=== PATIENT | female | born 2000 | race Caucasian/White ===

== ENCOUNTER 2018-08-12 16:14 | Outpatient (CLI) | payer MEDICAID, OTHER | END 2018-08-12 17:00 | disposition home or self-care (01) | LOC: LDOP 16:14 | PROVIDERS: ATTEND Obstetrics & Gynecology | DX: O36.8190 Decreased fetal movements, unspecified trimester, not applicable or unspecified (principal); Z3A.00 Weeks of gestation of pregnancy not specified | CPT/HCPCS: 59025; 99201; G0463 ==

== ENCOUNTER 2018-12-02 10:04 | Outpatient (CLI) | payer MEDICAID ==
[~2018-12-02] VITALS: Ht 154.9 cm; Wt 49.0 kg
[2018-12-02 10:20] VITALS: BP 108/58
[2018-12-02 11:23] LABS: CULTURE INDICATED? YES; MICROSCOPIC INDICATED
[2018-12-02 13:12] LABS: ACETONE, URINE Large (80mg/dL) (Negative)
== END 2018-12-02 14:10 | disposition home or self-care (01) ==
LOC: LDOP 10:04
PROVIDERS: ATTEND Obstetrics & Gynecology
DX: O26.893 Other specified pregnancy related conditions, third trimester (principal); R10.9 Unspecified abdominal pain; Z3A.37 37 weeks gestation of pregnancy
CPT/HCPCS: 59025; 81001; 82009; 87086; 99211; G0463

== ENCOUNTER 2018-12-08 12:43 | Inpatient (IN) | payer MEDICAID ==
[~2018-12-08] VITALS: Ht 154.9 cm; Wt 49.1 kg
[2018-12-08 13:00] VITALS: BP 102/53
[2018-12-08] MEDS ORDERED: LACTATED RINGERS 1,000 ML IV SCH ×2 (13:08→13:25)
[2018-12-08] MEDS ORDERED: OXYTOCIN 30U/ 0.9% NaCL 500ML 500 ML IV ONE (13:08)
[2018-12-08] MEDS: D5%-LACTATED RINGERS 1,000 ML IV SCH ×2 (13:08→21:08)
[2018-12-08] MEDS ORDERED: OXYTOCIN 30U/ 0.9% NaCL 500ML 500 ML IV PRN (13:25)
[2018-12-08] MEDS ORDERED: FENTANYL/BUPIV./NS/PF 250 ML EPIDCONT SCH (13:25)
[2018-12-08] MEDS ORDERED: ONDANSETRON 2MG/ML, 2ML IVPush PRN (13:30)
[2018-12-08] MEDS ORDERED: FENTANYL PF 100 MCG/2ML IV PRN (13:30)
[2018-12-08] MEDS ORDERED: EPHEDRINE 50 MG/ML, 1ML IVPush PRN (13:30)
[2018-12-08] MEDS ORDERED: FENTANYL PF 100 MCG/2ML IVPush PRN (13:30)
[2018-12-08] MEDS ORDERED: LACTATED RINGERS 1,000 ML IVBOLUS PRN (13:30)
[2018-12-08 13:35] LABS: BASOPHILS # (AUTO) 0.02 x10^3/uL (0-0.3); BASOPHILS % (AUTO) 0 % (0-1); EOSINOPHILS # (AUTO) 0.05 x10^3/uL (0-0.8); EOSINOPHILS % (AUTO) 1 % (1-7); LYMPHOCYTES # (AUTO) 0.96 x10^3/uL (1-6.1); LYMPHOCYTES % (AUTO) 9 % (22-44); MD NO; MEAN CORPUSCULAR HEMOGLOBIN 31.5 pg (27.0-34.8); MEAN CORPUSCULAR HGB CONC 33.1 g/dL (32.4-35.8); MEAN CORPUSCULAR VOLUME 95.2 fL (80-100); MEAN PLATELET VOLUME 9.7 fL (7.4-10.4); MONOCYTES # (AUTO) 0.71 x10^3/uL (0-1.4); MONOCYTES % (AUTO) 6 % (2-9); NEUTROPHILS # (AUTO) 9.33 x10^3/uL (1.8-8.0); NEUTROPHILS % (AUTO) 84 % (42-75); PLATELET COUNT 141 x10^3/uL (130-400); RED BLOOD COUNT 3.63 x10^6/uL (3.82-5.3); RED CELL DISTRIBUTION WIDTH 13.1 % (9.6-15.2)
[2018-12-08] MEDS ORDERED: NEWBORN KIT ONE (13:36)
[2018-12-08] MEDS ORDERED: FENTANYL PF 500 MCG, BUPIVACAINE/PF 0.5%, 30ML 62.5 ML in SODIUM CHLORIDE 0.9% 177.5 ML EPIDCONT SCH (14:00)
[2018-12-08] MEDS ORDERED: FENTANYL PF 100 MCG/2ML ONE ×2 (14:22→14:30)
[2018-12-08] MEDS ORDERED: BUPIVACAINE 0.25% ONE ×2 (14:23→14:30)
[2018-12-08] MEDS ORDERED: FENTANYL/BUPIV./NS/PF 250 ML EPIDCONT ONE (14:30)
[2018-12-08] MEDS ORDERED: LIDOCAINE/PF 1.5%-EPI 1:200K, 30ML ONE (14:30)
[2018-12-08] MEDS ORDERED: LIDOCAINE 1%, 20ML ONE (15:06)
[2018-12-08] MEDS ORDERED: MISOPROSTOL 200 MCG TABLET ONE (15:06)
[2018-12-08] MEDS ORDERED: OXYTOCIN 30U/ 0.9% NaCL 500ML 500 ML ONE (15:07)
[2018-12-08 19:20] VITALS: BP 106/66
[2018-12-08] MEDS ORDERED: OXYcodone IR 5MG TABLET PO PRN ×2 (23:00)
[2018-12-08] MEDS ORDERED: METHYLERGONOVINE 0.2 MG/ML IM PRN (23:00)
[2018-12-08] MEDS ORDERED: CARBOPROST TROMETHAMINE 250 MCG/ML, 1ML IM PRN (23:00)
[2018-12-08] MEDS ORDERED: ONDANSETRON 2MG/ML, 2ML IV PRN (23:00)
[2018-12-08] MEDS ORDERED: MISOPROSTOL 200 MCG TABLET PR PRN (23:00)
[2018-12-09] MEDS: OXYTOCIN 30U/ 0.9% NaCL 500ML 500 ML IV SCH ×3 (00:42→17:38)
[2018-12-09 00:45] VITALS: BP 120/74
[2018-12-09] MEDS ORDERED: LACTATED RINGERS 1,000 ML IV SCH (01:00)
[2018-12-09] MEDS: LACTATED RINGERS 1,000 ML IV SCH ×3 (01:00→21:00)
[2018-12-09 05:30] VITALS: BP 122/86
[2018-12-09] MEDS: IBUPROFEN 800 MG TABLET PO PRN ×2 (05:39→19:56)
[2018-12-09 06:43] LABS: MEAN CORPUSCULAR HEMOGLOBIN 32.2 pg (27.0-34.8); MEAN CORPUSCULAR HGB CONC 33.8 g/dL (32.4-35.8); MEAN CORPUSCULAR VOLUME 95.3 fL (80-100); MEAN PLATELET VOLUME 9.9 fL (7.4-10.4); PLATELET COUNT 138 x10^3/uL (130-400); RED BLOOD COUNT 3.73 x10^6/uL (3.82-5.3); RED CELL DISTRIBUTION WIDTH 13.2 % (9.6-15.2)
[2018-12-09 07:09] LABS: BASOPHILS # (AUTO) 0.04 x10^3/uL (0-0.3); BASOPHILS % (AUTO) 0 % (0-1); EOSINOPHILS % (AUTO) 0 % (1-7); LYMPHOCYTES # (AUTO) 0.93 x10^3/uL (1-6.1); LYMPHOCYTES % (AUTO) 6 % (22-44); MD SCAN; MONOCYTES # (AUTO) 0.83 x10^3/uL (0-1.4); MONOCYTES % (AUTO) 6 % (2-9); NEUTROPHILS # (AUTO) 12.86 x10^3/uL (1.8-8.0); NEUTROPHILS % (AUTO) 88 % (42-75)
[2018-12-09 07:30] VITALS: BP 121/83
[2018-12-09] MEDS: PRENATAL VIT/IRON/FA 1 EACH TABLET PO SCH (08:37)
[2018-12-09 16:00] VITALS: BP 120/80
[2018-12-09 19:45] VITALS: BP 116/66
[2018-12-10] MEDS: OXYTOCIN 30U/ 0.9% NaCL 500ML 500 ML IV SCH (04:35)
[2018-12-10] MEDS: LACTATED RINGERS 1,000 ML IV SCH (07:00)
[2018-12-10 07:47] VITALS: BP 120/78
[2018-12-10] MEDS: PRENATAL VIT/IRON/FA 1 EACH TABLET PO SCH (09:04)
[2018-12-10] MEDS ORDERED: DOCUSATE 100 MG CAPSULE PO SCH (10:00)
[2018-12-10] MEDS ORDERED: IBUP-1222 PO (10:31)
[2018-12-10] MEDS ORDERED: DOCU-131 PO (10:32)
== END 2018-12-10 12:35 | disposition home or self-care (01) | DRG 807 ==
LOC: LDOP 12:43 → LDIP 13:08 → 2NW 12-09 00:07
PROVIDERS: ADMIT Obstetrics & Gynecology; ATTEND Obstetrics & Gynecology
PROC: 10E0XZZ Delivery of Products of Conception, External Approach (ICD-10-PCS; principal; 2018-12-08)
PROC: 3E0R3BZ Introduction of Anesthetic Agent into Spinal Canal, Percutaneous Approach (ICD-10-PCS; 2018-12-08)
PROC: 00HU33Z Insertion of Infusion Device into Spinal Canal, Percutaneous Approach (ICD-10-PCS; 2018-12-08)
DX: O99.344 Other mental disorders complicating childbirth (principal); Z37.0 Single live birth; Z3A.39 39 weeks gestation of pregnancy; F32.9 Major depressive disorder, single episode, unspecified; Z87.820 Personal history of traumatic brain injury
CPT/HCPCS: 36415; J3490; 85025; 86850; 86870; 86900; 86922; 86923; G0378; J3010; J2590; J7120

== ENCOUNTER 2020-08-14 09:11 | Inpatient (IN) | payer MEDICAID ==
[~2020-08-14] VITALS: Ht 152.4 cm; Wt 37.3 kg
[~2020-08-14 09:11] MED LIST: DOCU-131 PO; IBUP-1222 PO
[2020-08-14] MEDS ORDERED: PRAZ1CAP2 PO (09:51)
[2020-08-14] MEDS ORDERED: CITA20TA6 PO (09:51)
[2020-08-14] MEDS ORDERED: LORA-445 PO (09:51)
[2020-08-14] MEDS ORDERED: BUSP5TAB2 PO (09:51)
[2020-08-14 10:09] LABS: BASOPHILS % (AUTO) 1 % (0-1); EOSINOPHILS % (AUTO) 1 % (1-7); LYMPHOCYTES % (AUTO) 29 % (22-44); MEAN CORPUSCULAR HGB CONC 34.1 g/dL (32.4-35.8); MEAN PLATELET VOLUME 8.9 fL (7.4-10.4); MONOCYTES % (AUTO) 7 % (2-9); NEUTROPHILS % (AUTO) 62 % (42-75); PLATELET COUNT 188 x10^3/uL (130-400); RED BLOOD COUNT 4.67 x10^6/uL (3.82-5.3); RED CELL DISTRIBUTION WIDTH 13.5 % (9.6-15.2)
[2020-08-14 10:12] LABS: MD NO
[2020-08-14 10:21] LABS: ALANINE AMINOTRANSFERASE 21 U/L (12-78); ALBUMIN 3.9 g/dL (3.4-5.0); ANION GAP 5 mmol/L (5-15); CALCIUM 8.7 mg/dL (8.5-10.1); CHLORIDE 111 mmol/L (98-107); CREATININE 0.98 mg/dL (0.55-1.02)
[2020-08-14 10:25] LABS: ALKALINE PHOSPHATASE 36 U/L (45-117); BILIRUBIN,TOTAL 0.5 mg/dL (0.2-1.0); TOTAL PROTEIN 7.2 g/dL (6.4-8.2)
--- NOTE | 2020-08-14 10:33 | NUR ---
UDS COLLECTED AND SENT TO THE LAB. PT C/O REDMAN AND VOMITED ONCE AFTER POSSIBLY HAVING SZ ACTIVITY YESTERDAY. PT REPORTS FELLING "SLOW" NOW AND MOTHER AT BEDSIDE VERIFIES SHE SEEMS A LITTLE MUTED. Addendum: 08/14/20 at 1035 by ALEGLISE PT DENIES MIDLINE NECK TENDERNESS, ABRASION TO LEFT FOREHEAD.
[2020-08-14 10:41] LABS: MICROSCOPIC INDICATED
[2020-08-14 10:49] LABS: AMPHETAMINE SCREEN, URINE Negative (Negative); BARBITURATE SCREEN, URINE Negative (Negative); BENZODIAZEPINE SCREEN, URINE Negative (Negative); CANNABINOID SCREEN, URINE Positive (Negative); COCAINE SCREEN, URINE Negative (Negative); METHADONE SCREEN, URINE Negative (Negative); OPIATE SCREEN, URINE Negative (Negative)
--- NOTE | 2020-08-14 11:06 | NUR ---
CHART UP FOR MD RECHECK.
[2020-08-14] MEDS ORDERED: SODIUM CHLORIDE FLUSH 10ML SYR IVF PRN (12:00)
[2020-08-14 12:33] VITALS: BP 107/69
[2020-08-14] MEDS ORDERED: LORazepam 0.5MG TABLET PO PRN (14:30)
[2020-08-14] MEDS ORDERED: ACETAMINOPHEN 325 MG TABLET PO PRN (15:00)
[2020-08-14] MEDS ORDERED: BISACODYL 10 MG SUPP PR PRN (15:00)
[2020-08-14] MEDS ORDERED: ONDANSETRON 2MG/ML, 2ML IVPush PRN (15:00)
[2020-08-14] MEDS ORDERED: POLYETHYLENE GLYCOL 17 GM PACKET PO PRN (15:00)
[2020-08-14] MEDS ORDERED: NICOTINE 14MG/24 HR PATCH.TD24 TD ONE (15:00)
[2020-08-14] MEDS ORDERED: MELATONIN 5 MG TABLET PO PRN (15:00)
[2020-08-14] MEDS: LORazepam 0.5MG TABLET PO SCH ×3 (15:00→21:39)
[2020-08-14] MEDS: LEVETIRACETAM 500 MG in SODIUM CHLORIDE 0.9% 100 ML IV SCH (15:43)
[2020-08-14 16:16] VITALS: BP 103/66
[2020-08-14 18:30] VITALS: BP 109/68
[2020-08-14] MEDS ORDERED: PRAZOSIN 1 MG CAPSULE PO SCH (21:00)
[2020-08-14] MEDS: BUSPIRONE 10 MG TABLET PO SCH (21:39)
[2020-08-15 01:35] VITALS: BP 112/72
[2020-08-15] MEDS: LEVETIRACETAM 500 MG in SODIUM CHLORIDE 0.9% 100 ML IV SCH ×2 (04:01→15:59)
[2020-08-15 06:26] LABS: BASOPHILS % (AUTO) 1 % (0-1); EOSINOPHILS % (AUTO) 2 % (1-7); LYMPHOCYTES % (AUTO) 30 % (22-44); MD NO; MEAN CORPUSCULAR HEMOGLOBIN 30.7 pg (27.0-34.8); MEAN CORPUSCULAR HGB CONC 33.4 g/dL (32.4-35.8); MEAN PLATELET VOLUME 9.1 fL (7.4-10.4); MONOCYTES % (AUTO) 7 % (2-9); NEUTROPHILS % (AUTO) 61 % (42-75); PLATELET COUNT 186 x10^3/uL (130-400); RED BLOOD COUNT 4.74 x10^6/uL (3.82-5.3); RED CELL DISTRIBUTION WIDTH 13.4 % (9.6-15.2)
[2020-08-15 06:37] LABS: ANION GAP 5 mmol/L (5-15); CALCIUM 8.7 mg/dL (8.5-10.1); CHLORIDE 112 mmol/L (98-107); CREATININE 0.85 mg/dL (0.55-1.02)
[2020-08-15 07:34] VITALS: BP 108/59
[2020-08-15] MEDS: SENNA/DOCUSATE TABLET PO SCH (09:00)
[2020-08-15] MEDS: BUSPIRONE 10 MG TABLET PO SCH ×2 (09:49→20:13)
[2020-08-15] MEDS: CITALOPRAM 20 MG TABLET PO SCH (09:49)
[2020-08-15] MEDS: LORazepam 0.5MG TABLET PO SCH ×3 (09:49→20:13)
[2020-08-15] MEDS ORDERED: NICOTINE 14MG/24 HR PATCH.TD24 ONE (10:25)
[2020-08-15 12:29] VITALS: BP 110/73
[2020-08-15] MEDS ORDERED: NICOTINE 14MG/24 HR PATCH.TD24 TD SCH (16:00)
[2020-08-15 19:44] VITALS: BP 100/62
[2020-08-16 01:26] VITALS: BP 94/57
[2020-08-16] MEDS: LEVETIRACETAM 500 MG in SODIUM CHLORIDE 0.9% 100 ML IV SCH (03:57)
[2020-08-16 08:10] VITALS: BP 100/61
[2020-08-16] MEDS: BUSPIRONE 10 MG TABLET PO SCH (08:53)
[2020-08-16] MEDS: CITALOPRAM 20 MG TABLET PO SCH (08:53)
[2020-08-16] MEDS: LORazepam 0.5MG TABLET PO SCH (08:53)
[2020-08-16] MEDS: SENNA/DOCUSATE TABLET PO SCH (08:53)
[2020-08-16] MEDS ORDERED: LEVE500T53 PO (13:20)
[2020-08-16 14:32] VITALS: BP 95/60
== END 2020-08-16 14:40 | disposition home or self-care (01) | DRG 101 ==
LOC: ED 11:27 → EDIP 11:41 → 4WST 12:28 → DCLOUNGE 08-16 14:35
PROVIDERS: ADMIT Internal Medicine; ATTEND Internal Medicine
DX: G40.409 Other generalized epilepsy and epileptic syndromes, not intractable, without status epilepticus (principal); Z68.1 Body mass index [BMI] 19.9 or less, adult; R63.6 Underweight; R55 Syncope and collapse; R82.71 Bacteriuria; R00.1 Bradycardia, unspecified; F12.20 Cannabis dependence, uncomplicated; Z79.899 Other long term (current) drug therapy; Z87.891 Personal history of nicotine dependence; Q89.9 Congenital malformation, unspecified
CPT/HCPCS: 36415; 70450; 70551; 80048; 80053; 80307; 81001; 82533; 83735; 84100; 84443; 84703; 85025; 87086; 93005; 93306; 95819; 96374; 99285; G0378; J1953

== ENCOUNTER 2020-10-01 08:53 | Emergency (ER) | payer MEDICAID ==
[~2020-10-01] VITALS: Ht 152.4 cm; Wt 38.0 kg
[~2020-10-01 08:53] MED LIST changes: +BUSP5TAB2 PO; +CITA20TA6 PO; +LEVE500T53 PO; +LORA-445 PO; +PRAZ1CAP2 PO
--- NOTE | 2020-10-01 09:01 | NUR ---
ERPA AT BEDSIDE FOR EVALUATION.
--- NOTE | 2020-10-01 09:06 | NUR ---
PATIENT BIB EMS WITH CHIEF C/O SYNCOPAL EPISODE ABOUT 45 MINUTES AGO. PER EMS PATIENT'S MOM ASSISTED PATIENT TO GROUND, PATIENT DID NOT HIT HER HEAD. EMS REPORTS PATIENT SMOKED MARIJUANA PRIOR TO SYNCOPAL EPISODE. EMS REPORTS PATIENT IS A&OX4, VSS EN ROUTE, 20 GAUGE STARTED IN RAC, BG 128 EN ROUTE. MOM REPORTS THAT PATIENT MAY HAVE HAD SEIZURE LAST WEEK. UPON ASSESSMENT PATIENT REPORTS VOMITING X3 DAYS, AND DIARRHEA STARTED YESTERDAY. PATIENT DENIES FEVER. CONNECTED TO MONITORS, SEIZURE PRECAUTIONS IN PLACE, CALL LIGHT WITHIN REACH.
--- NOTE | 2020-10-01 09:19 | NUR ---
PATIENT AMBULATED TO BATHROOM WITH STEADY GAIT FOR URINE SAMPLE.
--- NOTE | 2020-10-01 09:24 | NUR ---
PATIENT BACK TO ROOM, URINE COLLECTED AND SENT TO LAB, IMAGING AT BEDSIDE.
[2020-10-01] MEDS ORDERED: SODIUM CHLORIDE FLUSH 10ML SYR IVF ONE (09:30)
[2020-10-01] MEDS ORDERED: SODIUM CHLORIDE 0.9% 1,000ML IVBOLUS ONE (09:30)
[2020-10-01 09:39] LABS: BASOPHILS % (AUTO) 1 % (0-1); EOSINOPHILS % (AUTO) 2 % (1-7); LYMPHOCYTES % (AUTO) 32 % (22-44); MEAN CORPUSCULAR HGB CONC 33.5 g/dL (32.4-35.8); MEAN PLATELET VOLUME 9.1 fL (7.4-10.4); MONOCYTES % (AUTO) 8 % (2-9); NEUTROPHILS % (AUTO) 58 % (42-75); PLATELET COUNT 145 x10^3/uL (130-400); RED BLOOD COUNT 4.43 x10^6/uL (3.82-5.3); RED CELL DISTRIBUTION WIDTH 13.4 % (9.6-15.2)
[2020-10-01 09:45] LABS: MD NO
[2020-10-01 09:52] LABS: ALANINE AMINOTRANSFERASE 16 U/L (12-78); ALBUMIN 4.1 g/dL (3.4-5.0); ANION GAP 4 mmol/L (5-15); CALCIUM 8.8 mg/dL (8.5-10.1); CHLORIDE 110 mmol/L (98-107); CREATININE 0.93 mg/dL (0.55-1.02)
[2020-10-01 09:55] LABS: AMPHETAMINE SCREEN, URINE Negative (Negative); BARBITURATE SCREEN, URINE Negative (Negative); BENZODIAZEPINE SCREEN, URINE Negative (Negative); CANNABINOID SCREEN, URINE Positive (Negative); COCAINE SCREEN, URINE Negative (Negative); METHADONE SCREEN, URINE Negative (Negative); OPIATE SCREEN, URINE Negative (Negative)
[2020-10-01 09:56] LABS: ALKALINE PHOSPHATASE 33 U/L (45-117); BILIRUBIN,TOTAL 0.4 mg/dL (0.2-1.0); TOTAL PROTEIN 7.1 g/dL (6.4-8.2)
--- NOTE | 2020-10-01 10:16 | NUR ---
PATIENT RESTING IN GURNEY, NADN, VSS, WARM BLANKETS PROVIDED, SEIZURE PRECAUTIONS IN PLACE, CALL LIGHT WITHIN REACH, NO FURTHER NEEDS AT THIS TIME. PATIENT UP FOR RECHECK.
--- NOTE | 2020-10-01 10:27 | NUR ---
ERMD AT BEDSIDE.
[2020-10-01 10:30] VITALS: BP 120/84
--- NOTE | 2020-10-01 10:51 | NUR ---
IV removed with tip intact. Patient given discharge instructions and they have confirmed that they understand the instructions. Patient stable and ambulatory with steady gait from ED to mom's vehicle.
== END 2020-10-01 10:52 | disposition home or self-care (01) ==
LOC: ED 09:23
DX: R55 Syncope and collapse (principal)
CPT/HCPCS: 36415; 71045; 80053; 80307; 83735; 84703; 85025; 93005; 96360; 99285; J7030

== ENCOUNTER 2020-10-09 14:32 | Emergency (ER) | payer MEDICAID ==
[~2020-10-09] VITALS: Ht 154.9 cm; Wt 40.0 kg
[2020-10-09] MEDS ORDERED: SODIUM CHLORIDE 0.9% 1,000 ML IV ONE (15:30)
[2020-10-09] MEDS ORDERED: ONDANSETRON 2MG/ML, 2ML IVPush ONE (15:30)
[2020-10-09] MEDS ORDERED: SODIUM CHLORIDE FLUSH 10ML SYR IVF ONE (15:30)
[2020-10-09] MEDS ORDERED: SODIUM CHLORIDE 0.9% 1,000ML IVBOLUS ONE (15:30)
[2020-10-09] MEDS ORDERED: ONDANSETRON 2MG/ML, 2ML ONE (15:38)
[2020-10-09 15:50] LABS: BASOPHILS % (AUTO) 0 % (0-1); EOSINOPHILS % (AUTO) 0 % (1-7); LYMPHOCYTES % (AUTO) 5 % (22-44); MEAN CORPUSCULAR HGB CONC 34.4 g/dL (32.4-35.8); MEAN PLATELET VOLUME 8.9 fL (7.4-10.4); MONOCYTES % (AUTO) 2 % (2-9); NEUTROPHILS % (AUTO) 92 % (42-75); PLATELET COUNT 154 x10^3/uL (130-400); RED BLOOD COUNT 4.28 x10^6/uL (3.82-5.3); RED CELL DISTRIBUTION WIDTH 13.4 % (9.6-15.2)
[2020-10-09 16:01] LABS: ALBUMIN 4.4 g/dL (3.4-5.0); ANION GAP 8 mmol/L (5-15); CHLORIDE 110 mmol/L (98-107)
[2020-10-09 16:08] LABS: ALANINE AMINOTRANSFERASE 26 U/L (12-78); ALKALINE PHOSPHATASE 35 U/L (45-117); BILIRUBIN,TOTAL 0.8 mg/dL (0.2-1.0); CREATININE 0.83 mg/dL (0.55-1.02); TOTAL PROTEIN 7.2 g/dL (6.4-8.2)
[2020-10-09 16:21] LABS: MICROSCOPIC INDICATED
[2020-10-09 16:33] LABS: MD SCAN
--- NOTE | 2020-10-09 18:48 | NUR ---
ASSUMED CARE OF PATIENT. BEDSIDE REPORT GIVEN FROM REYES MARQUEZ
[2020-10-09 19:36] VITALS: BP 112/68
== END 2020-10-09 19:38 | disposition home or self-care (01) ==
LOC: ED 18:17
DX: R11.2 Nausea with vomiting, unspecified (principal); E86.0 Dehydration; R10.84 Generalized abdominal pain
CPT/HCPCS: 36415; 80053; 81001; 83690; 84703; 85025; 96361; 96374; 99283; J2405; J7030

== ENCOUNTER 2020-12-10 08:17 | Emergency (ER) | payer MEDICAID ==
[~2020-12-10] VITALS: Ht 152.4 cm; Wt 35.4 kg
[2020-12-10] MEDS ORDERED: ONDANSETRON 2MG/ML, 2ML ONE (08:45)
[2020-12-10] MEDS ORDERED: MORPHINE SULFATE 4 MG/ML, 1ML ONE (08:45)
--- NOTE | 2020-12-10 08:49 | NUR ---
PATIENT WHEELED BACK FROM TRIAGE WITH CHIEF C/O ABD, NAUSEA AND SOB X2 DAYS. PATIENT REPORTS CHILLS THAT STARTED THIS MORNING. PATIENT A&O, CONNECTED TO MONITOR, VSS, NADN, CALL LIGHT WITHIN REACH.
[2020-12-10] MEDS ORDERED: ONDANSETRON 2MG/ML, 2ML IVPush ONE (09:00)
[2020-12-10] MEDS ORDERED: MORPHINE SULFATE 4 MG/ML, 1ML IVPush PRN (09:00)
[2020-12-10] MEDS ORDERED: SODIUM CHLORIDE 0.9% 1,000ML IVBOLUS ONE (09:00)
[2020-12-10 09:03] LABS: BASOPHILS % (AUTO) 1 % (0-1); EOSINOPHILS % (AUTO) 3 % (1-7); LYMPHOCYTES % (AUTO) 32 % (22-44); MEAN CORPUSCULAR HGB CONC 34.3 g/dL (32.4-35.8); MEAN PLATELET VOLUME 8.5 fL (7.4-10.4); MONOCYTES % (AUTO) 8 % (2-9); NEUTROPHILS % (AUTO) 56 % (42-75); PLATELET COUNT 141 x10^3/uL (130-400); RED CELL DISTRIBUTION WIDTH 13.6 % (9.6-15.2)
[2020-12-10 09:12] LABS: ALANINE AMINOTRANSFERASE 24 U/L (12-78); ALBUMIN 3.9 g/dL (3.4-5.0); ANION GAP 8 mmol/L (5-15); CHLORIDE 109 mmol/L (98-107); CREATININE 0.93 mg/dL (0.55-1.02)
[2020-12-10 09:17] LABS: ALKALINE PHOSPHATASE 41 U/L (45-117); BILIRUBIN,TOTAL 0.7 mg/dL (0.2-1.0)
--- NOTE | 2020-12-10 09:23 | NUR ---
PATIENT'S O2 SATURATION DOWN TO LOW 80'S, PUT 2 LPM NC AND O2 BACK UP TO 95-96%.
--- NOTE | 2020-12-10 09:37 | NUR ---
PATIENT HELPED TO BSC FOR URINE SAMPLE, URINE SAMPLE COLLECTED AND SENT TO LAB.
[2020-12-10 09:48] LABS: MICROSCOPIC NOT IND
--- NOTE | 2020-12-10 10:05 | NUR ---
PATIENT RESTING IN GURNEY, EYES CLOSED, RESP EVEN AND UNLABORED, VSS, CALL LIGHT WITHIN REACH. PATIENT UP FOR RECHECK.
[2020-12-10 10:11] VITALS: BP 94/58
--- NOTE | 2020-12-10 10:39 | NUR ---
ERPA AT BEDSIDE TO DISCUSS POC.
--- NOTE | 2020-12-10 11:00 | NUR ---
IV removed with tip intact. Patient given discharge instructions and prescription and they have confirmed that they understand the instructions. Bus pass provided. Patient stable and ambulatory with steady gait. NAD, all questions answered appropriately, denies additional needs at this time. No personal belongings left in room after discharge.
== END 2020-12-10 11:10 | disposition home or self-care (01) ==
LOC: ED 08:27
DX: R10.30 Lower abdominal pain, unspecified (principal); R11.2 Nausea with vomiting, unspecified; R19.7 Diarrhea, unspecified
CPT/HCPCS: 36415; 80053; 81003; 83690; 84703; 85025; 96361; 96374; 96375; 99284; J2270; J2405; J7030

== ENCOUNTER 2020-12-12 09:14 | Emergency (ER) | payer MEDICAID ==
[~2020-12-12] VITALS: Ht 152.4 cm; Wt 34.7 kg
--- NOTE | 2020-12-12 09:49 | NUR ---
pt presents to ed with c/o LLQ abd pain, nausea, vomitting x 2 days. states they were here recently and got diagnosed with gastritis, did not get presciption. pt actively dry heaving, a&o, resps even and unlabored, vss. warm blanket provided, call light in reach, partner at bedside.
[2020-12-12 10:01] LABS: MICROSCOPIC INDICATED
[2020-12-12] MEDS ORDERED: METOCLOPRAMIDE 5 MG/ML, 2ML ONE (10:07)
[2020-12-12] MEDS ORDERED: FAMOTIDINE 20 MG/2 ML ONE (10:07)
[2020-12-12 10:16] LABS: BASOPHILS % (AUTO) 0 % (0-1); EOSINOPHILS % (AUTO) 0 % (1-7); LYMPHOCYTES % (AUTO) 10 % (22-44); MEAN CORPUSCULAR HEMOGLOBIN 31.6 pg (27.0-34.8); MEAN CORPUSCULAR HGB CONC 34.1 g/dL (32.4-35.8); MEAN PLATELET VOLUME 8.7 fL (7.4-10.4); MONOCYTES % (AUTO) 4 % (2-9); NEUTROPHILS % (AUTO) 86 % (42-75); PLATELET COUNT 172 x10^3/uL (130-400); RED BLOOD COUNT 4.63 x10^6/uL (3.82-5.3); RED CELL DISTRIBUTION WIDTH 13.4 % (9.6-15.2)
[2020-12-12 10:27] LABS: ALANINE AMINOTRANSFERASE 30 U/L (12-78); ALBUMIN 4.3 g/dL (3.4-5.0); ANION GAP 6 mmol/L (5-15); CALCIUM 9.6 mg/dL (8.5-10.1); CHLORIDE 110 mmol/L (98-107); CREATININE 0.83 mg/dL (0.55-1.02)
[2020-12-12 10:30] LABS: ALKALINE PHOSPHATASE 43 U/L (45-117); BILIRUBIN,TOTAL 0.7 mg/dL (0.2-1.0); TOTAL PROTEIN 7.7 g/dL (6.4-8.2)
--- NOTE | 2020-12-12 10:30 | NUR ---
PIV placed, pt medicated per order, tolerated well. pt a&o, resps even and unlabored, vss, all monitors attached, nsr, nadn. fluids infusing, call light in reach.
--- NOTE | 2020-12-12 10:48 | NUR ---
PT TO CT
[2020-12-12] MEDS ORDERED: SODIUM CHLORIDE FLUSH 10ML SYR IVF ONE (11:00)
[2020-12-12] MEDS ORDERED: FAMOTIDINE 20 MG/2 ML IVPush ONE (11:00)
[2020-12-12] MEDS ORDERED: METOCLOPRAMIDE 5 MG/ML, 2ML IVPush ONE (11:00)
[2020-12-12] MEDS ORDERED: SODIUM CHLORIDE 0.9% 1,000ML IVBOLUS ONE (11:00)
[2020-12-12] MEDS ORDERED: OMNIPAQUE 350 MG/ML, 75ML BOTTLE ONE (11:02)
[2020-12-12 11:08] LABS: ACETONE, SERUM Negative (Negative)
--- NOTE | 2020-12-12 11:15 | NUR ---
pt back from ct
--- NOTE | 2020-12-12 11:30 | NUR ---
pt sleeping in bed, resps even and unlabored, vss, nadn. cup of water provided for PO challenge, toleratingn well. will continue to monitor
[2020-12-12 12:15] VITALS: BP 150/94
--- NOTE | 2020-12-12 12:15 | NUR ---
pt tolerating po challenge, taking small sipd of water but not feeling need to vomit. pt states decrease nausea/pain as well. pt a&o, resps even and unlabored, vss, all monitors attached, nsr, nadn.
--- NOTE | 2020-12-12 13:03 | NUR ---
DC INSTRUCTIONS REVIEWED
== END 2020-12-12 13:11 | disposition home or self-care (01) ==
LOC: ED 09:51
DX: R11.2 Nausea with vomiting, unspecified (principal); R10.32 Left lower quadrant pain; R10.31 Right lower quadrant pain; R00.1 Bradycardia, unspecified
CPT/HCPCS: 36415; 74177; 80053; 81001; 82010; 83605; 83690; 85025; 87086; 93005; 96361; 96374; 96375; 99285; J2765; J7030; Q9967; 96376